=== PATIENT | male | born 1960 | race Caucasian/White ===

== ENCOUNTER 2022-11-02 21:06 | Emergency (ER) | payer OTHER, SELFPAY ==
[2022-11-02 21:08] VITALS: BP 162/96; PULSE 98; RESP 16; TEMP 36.4; O2SAT 99; BMI 38.3
--- NOTE | 2022-11-02 21:43 | EKG12_ITS ---
Test Reason : CP Blood Pressure : / mmHG Vent. Rate : 096 BPM Atrial Rate : 096 BPM P-R Int : 190 ms QRS Dur : 100 ms QT Int : 370 ms P-R-T Axes : 031 006 045 degrees QTc Int : 467 ms Normal sinus rhythm Inferior infarct , age undetermined Abnormal ECG Confirmed by DESMOND GEE, KIM ([id number]), newspaper managing editor BRIDGETT CARBONE ([id number]) on 11/03/2022 10:46:27 AM Referred By: PRABHU Confirmed By:KIM LOGAN MD
--- NOTE | 2022-11-02 21:50 | RAD_ITS ---
STUDY: X-RAY CHEST REASON FOR EXAM: Male, 62 years old. chest pain TECHNIQUE: Single AP portable view of the chest. COMPARISON: None. FINDINGS: The lungs are clear and expanded. Elevated right hemidiaphragm. There is no demonstrated pleural abnormality. Normal size heart. Normal mediastinum and santos. Normal visualized pulmonary arteries. Normal visualized aortic arch and descending thoracic aorta. Normal visualized thoracic spine. Normal visualized ribs, clavicles, and shoulders. There is no demonstrated abnormality of the visualized soft tissue structures of the upper abdomen. RAD/Chest 1 View (Portable) IMPRESSION: Normal x-ray examination of the chest. Electronically Signed: Lei Huang MD at 22:16 EDT ,
[2022-11-02 22:01] LABS: Absolute Lymphocyte Count 2.45 X10^3/uL (0.83-4.51); Absolute Neutrophil Count 6.7 X10^3/uL (2.0-7.7); Basophil# 0.11 X10^3/uL; Eosinophils% 2.6 % (0-5); Hematocrit 43.2 % (40-54); Hemoglobin 14.7 g/dL (13.0-16.5); Lymphocyte # 2.45 X10^3/ul (0.83-4.51); Lymphocyte % 21.5 % (19-41); Mean Corpuscular Hgb 32.9 pg (27.0-32.0); Mean Corpuscular Volume 96.6 fL (80-94); Mean Platelet Vol. 9.4 fl (6.2-12.0); Monocyte# 1.82 X10^3/uL; NRBC Flagged by Analyzer 0 % (0-5); Neutrophil # 6.67 X10^3/uL (2.7-7.7); Neutrophil % 58.6 % (47-70); POSITIVE DIFFERENTIAL YES; Platelet Count 413 K/mm3 (150-450); RBC Distribution Width CV 13.9 % (11.6-14.6); RBC Distribution Width SD 49.6 fl (35.1-43.9); Red Blood Count 4.47 M/mm3 (4.6-6.2); White Blood Count 11.4 K/mm3 (4.4-11.0)
[2022-11-02 22:05] LABS: Differential Indicated SCAN CRITERIA MET
[2022-11-02 22:09] LABS: Prothrombin Time (Protime)PT. 12.8 SECONDS (11.7-14.9)
[2022-11-02 22:15] LABS: Anion Gap 6 (5-15); BUN 13 mg/dL (7-18); BUN/Creat Ratio 10.7 RATIO (10-20); Calcium,Total 9.2 mg/dL (8.5-10.1); Chloride 105 mmol/L (98-107); Creatinine, Serum 1.21 mg/dL (0.70-1.30); EST Glomerular Filtration Rate 64 mL/min (>60); Est Glom Filt Rate - Afr Amer 78 mL/min (>60); Estimated Creatinine Clearance 57.66 ml/min; Glucose 90 mg/dL (74-106); Potassium 2.9 mmol/L (3.5-5.1); Sodium Level 138 mmol/L (136-145); Troponin-I HS (w/2H Reflex) 14 pg/mL (3.0-78.0)
[2022-11-02 22:23] LABS: Differential Comment SCANNED
[2022-11-02] MEDS: Aspirin 325 MG Tablet PO (22:54)
[2022-11-02] MEDS: Ondansetron 4 MG/2 ML Vial IV (22:55)
[2022-11-02] MEDS: Morphine 4 MG/ML Syringe IV (22:56)
[2022-11-02 23:01] VITALS: BP 146/85; PULSE 91; RESP 12; O2SAT 97
[2022-11-02 23:04] LABS: D-Dimer Quantitative (DVT/PE) 0.93 FEU/ug/m (0.27-0.49)
--- NOTE | 2022-11-02 23:08 | CT_ITS ---
STUDY: CTA CHEST REASON FOR EXAM: Male, 62 years old. chest pain with elevated d-dimer RADIATION DOSAGE (If Supplied By Facility): CTDIvol = ( 22.86 ) mGy, DLP = ( 785.33 ) mGycm TECHNIQUE: The examination was performed with the intravenous administration of IV 100mL Isovue-370. Post-processing of the angiographic images was performed, with multiplanar reformation and 3D reconstruction. Individualized dose optimization techniques were used for this CT. COMPARISON: November 02, 2022 chest radiograph. FINDINGS: Unremarkable thyroid. Normal enhancement of the bilateral pulmonary arteries. There is no demonstrated pulmonary embolism. No main pulmonary arterial enlargement. Mild aortic arch atherosclerosis and proximal left subclavian artery atherosclerosis without dissection or ectasia. No cardiomegaly or pericardial effusion.. Mild coronary atherosclerosis. Subcentimeter mediastinal and bilateral hilar lymph nodes, nonpathologic by size criterion, likely reactive. No endobronchial lesion. No peribronchial thickening. Scattered linear subsegmental atelectasis. No effusion. No pneumothorax. Normal osseous structures. Symmetric gynecomastia. Right greater left edema inferior to the scapula. Small hiatal hernia. The Hepatic steatosis. 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 CT/CTA Chest W/WO Contrast IMPRESSION: No pulmonary embolism or evidence of acute airspace. Mild scattered subsegmental atelectasis within the lungs. Small hiatal hernia. Hepatic steatosis. 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 Electronically Signed: Emile Craft MD at 1:12 EDT ,
[2022-11-02 23:57] LABS: Reflex Troponin-HS? (from REC) Y
[2022-11-03 00:33] LABS: Troponin-I HS 15 pg/mL (3.0-78.0)
[2022-11-03 01:28] VITALS: BP 148/94; PULSE 90; RESP 15; O2SAT 95
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
[2022-11-04 10:06] LABS: Pathologist Review Reviewed
== END 2022-11-03 01:44 | disposition home or self-care (01) ==
PROVIDERS: Emergency Provider Emergency Medicine; PCP Family Medicine; Visit Provider Emergency Medicine
DX: R07.9 Chest pain, unspecified (principal); M62.838 Other muscle spasm; E78.00 Pure hypercholesterolemia, unspecified; I10 Essential (primary) hypertension; Z79.899 Other long term (current) drug therapy; M10.9 Gout, unspecified; Z90.81 Acquired absence of spleen; X50.0XXA Overexertion from strenuous movement or load, initial encounter; Y93.89 Activity, other specified
CPT/HCPCS: 71045; 71275; 80048; 84484; 85025; 85379; 85610; 93005; 96374; 96375; 99285; Q9967; A4216; J2405

== ENCOUNTER 2023-03-29 14:51 | Emergency (ER) | payer OTHER, SELFPAY ==
[2023-03-29 14:52] VITALS: BP 193/104; PULSE 105; RESP 18; TEMP 36.7; O2SAT 95; BMI 38.0
--- NOTE | 2023-03-29 15:07 | CT_ITS ---
EXAM: CT Abdomen And Pelvis W/ Contrast Injection HISTORY: epigastric pain TECHNIQUE: Routine protocol CT abdomen pelvis. IV Contrast: IV 100mL Isovue-300 . Oral Contrast: without. Sagittal and coronal images were reconstructed. RADIATION DOSAGE (If Supplied By Facility): CTDIvol = ( 16.33 ) mGy, DLP = ( 1217.97 ) mGycm Individualized dose optimization techniques were used for this CT. COMPARISON: CT chest 11/02/2022. LIMITATIONS: None. FINDINGS: LOWER CHEST: Reticular opacities in the lower lungs likely scarring.. LIVER: Fatty infiltration. Tiny low-attenuation structure too small to characterize. GALLBLADDER/BILE DUCTS: Unremarkable. PANCREAS: Unremarkable. SPLEEN: Not visualized. A few small nodules in the region a few which are calcified, likely splenules. ADRENAL GLANDS: Unremarkable. KIDNEYS / URETERS: Small cyst in the left kidney.. BOWEL / MESENTERY: Diverticula throughout the colon. No bowel obstruction. Scattered soft tissue nodules throughout the mesentery including along the gastrohepatic ligament, gastrosplenic, and largest mass in the left lower abdomen measures 4.9 x 2.2 cm. Another rounded structure at the quinn hepatis adjacent to the pancreatic head measures 3.2 x 1.8 cm. These may represent enlarged lymph nodes, or splenosis given the absent spleen. APPENDIX: Identified and normal. No evidence of acute appendicitis. PERITONEUM: No free air. No free fluid. VESSELS: Abdominal aorta is normal caliber. RETROPERITONEUM: Unremarkable. REPRODUCTIVE ORGANS: Unremarkable. BLADDER: Unremarkable. ABDOMINAL WALL: Unremarkable. BONES: Degenerative changes in lumbar spine, and hips. OTHER: None. CT/Abdomen/Pelvis W IV Cont ONLY IMPRESSION: Colonic diverticulosis without evidence of acute diverticulitis. Multiple soft tissue masses throughout the mesentery. Differential includes splenosis with multiple splenules in the absence of spleen, but adenopathy or metastatic disease is not excluded. If there are no prior studies to assess for stability, nuclear medicine liver spleen scan may be helpful to assess for splenosis. Hepatic steatosis. Electronically Signed: Kimberly Macario MD at 16:32 EST ,
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
[2023-03-29] MEDS: 0.9% Normal Saline (1000mL) 1,000 ML 1000 ML IV (15:25)
[2023-03-29] MEDS: Ondansetron 4 MG/2 ML Vial IV (15:25)
[2023-03-29] MEDS: Morphine 4 MG/ML Syringe IV (15:25)
[2023-03-29 15:45] LABS: Absolute Lymphocyte Count 2.16 X10^3/uL (0.83-4.51); Absolute Neutrophil Count 10.8 X10^3/uL (2.0-7.7); Basophil% 0.7 % (0-1); Eosinophil# 0.07 X10^3/uL; Eosinophils% 0.5 % (0-5); Hematocrit 47.5 % (40-54); Hemoglobin 16.2 g/dL (13.0-16.5); Lymphocyte # 2.16 X10^3/ul (0.83-4.51); Lymphocyte % 14.5 % (19-41); Mean Corp Hgb Conc 34.1 g/dL (32-36); Mean Corpuscular Hgb 32.9 pg (27.0-32.0); Mean Corpuscular Volume 96.5 fL (80-94); Mean Platelet Vol. 9.2 fl (6.2-12.0); Monocyte# 1.71 X10^3/uL; Monocyte% 11.4 % (0-10); NRBC Flagged by Analyzer 0 % (0-5); Neutrophil # 10.83 X10^3/uL (2.7-7.7); Neutrophil % 72.4 % (47-70); POSITIVE DIFFERENTIAL YES; Platelet Count 388 K/mm3 (150-450); RBC Distribution Width CV 14.2 % (11.6-14.6); RBC Distribution Width SD 50.5 fl (35.1-43.9); Red Blood Count 4.92 M/mm3 (4.6-6.2); White Blood Count 14.9 K/mm3 (4.4-11.0)
[2023-03-29 15:46] LABS: Differential Indicated SCAN CRITERIA MET
[2023-03-29 16:01] LABS: ALB/GLOB Ratio 0.7 RATIO (0.9-2.4); AST(SGOT) 34 U/L (15-37); Alanine Aminotransfer ALT/SGPT 36 U/L (16-61); Albumin, Serum 3.6 g/dL (3.2-5.0); Alkaline Phosphatase 120 U/L (45-117); Anion Gap 10 (5-15); BUN 16 mg/dL (7-18); BUN/Creat Ratio 10.7 RATIO (10-20); Calcium,Total 10.7 mg/dL (8.5-10.1); Chloride 100 mmol/L (98-107); EST Glomerular Filtration Rate 50 mL/min (>60); Est Glom Filt Rate - Afr Amer 60 mL/min (>60); Estimated Creatinine Clearance 46.51 ml/min; Globulin 4.9 g/dL (2.2-4.2); Glucose 100 mg/dL (74-106); Lipase 19 U/L (13-75); Potassium 3.2 mmol/L (3.5-5.1); Protein, Total 8.5 g/dL (6.4-8.2); Sodium Level 136 mmol/L (136-145)
[2023-03-31 11:16] LABS: Pathologist Review Reviewed
== END 2023-03-29 17:18 | disposition home or self-care (01) ==
PROVIDERS: Physician Assistant; Emergency Provider Emergency Medicine; PCP Family Medicine; Referring Provider Emergency Medicine; Visit Provider Emergency Medicine
DX: R10.13 Epigastric pain (principal); I10 Essential (primary) hypertension; E78.00 Pure hypercholesterolemia, unspecified; Z79.899 Other long term (current) drug therapy; M10.9 Gout, unspecified; Z90.81 Acquired absence of spleen
CPT/HCPCS: 74177; 80053; 83690; 85025; 96361; 96374; 96375; 99282; J7030; Q9967; A4216; J2405

== ENCOUNTER 2024-02-13 10:00 | Outpatient (CLI) | payer MEDICARE, SELFPAY ==
--- NOTE | 2024-02-16 10:26 | EKG12_ITS ---
Test Reason : PRE OP Blood Pressure : / mmHG Vent. Rate : 098 BPM Atrial Rate : 098 BPM P-R Int : 170 ms QRS Dur : 094 ms QT Int : 374 ms P-R-T Axes : 021 -12 090 degrees QTc Int : 477 ms Normal sinus rhythm Nonspecific ST and T wave abnormality Prolonged QT Abnormal ECG Confirmed by DESMOND GEE, KIM ([id number]), purchase request editor BRIDGETT CARBONE ([id number]) on 02/16/2024 2:10:57 PM Referred By: Darnell Abbasi Confirmed By:KIM LOGAN MD
[2024-02-22 13:32] LABS: Absolute Lymphocyte Count 2.18 X10^3/uL (0.83-4.51); Absolute Neutrophil Count 8.6 X10^3/uL (2.0-7.7); Basophil# 0.09 X10^3/uL; Basophil% 0.7 % (0-1); Eosinophils% 2.3 % (0-5); Hematocrit 41.2 % (40-54); Lymphocyte # 2.18 X10^3/ul (0.83-4.51); Lymphocyte % 17.1 % (19-41); Mean Corpuscular Hgb 34.1 pg (27.0-32.0); Mean Corpuscular Volume 100.5 fL (80-94); Mean Platelet Vol. 9.3 fl (6.2-12.0); Monocyte# 1.53 X10^3/uL; NRBC Flagged by Analyzer 0 % (0-5); Neutrophil # 8.62 X10^3/uL (2.7-7.7); Neutrophil % 67.5 % (47-70); POSITIVE DIFFERENTIAL YES; Platelet Count 471 K/mm3 (150-450); RBC Distribution Width CV 14.6 % (11.6-14.6); RBC Distribution Width SD 53.9 fl (35.1-43.9); White Blood Count 12.8 K/mm3 (4.4-11.0)
[2024-02-22 13:37] LABS: Differential Indicated SCAN CRITERIA MET
[2024-02-22 13:43] LABS: International Normalized Ratio 0.9; Prothrombin Time (Protime)PT. 11.8 SECONDS (11.7-14.9)
[2024-02-22 13:44] LABS: Partial Thromboplast Time 23.8 Seconds (24.1-36.2)
[2024-02-22 14:08] LABS: AST(SGOT) 26 U/L (15-37); Alanine Aminotransfer ALT/SGPT 28 U/L (16-61); Albumin, Serum 3.3 g/dL (3.2-5.0); Alkaline Phosphatase 116 U/L (45-117); Bilirubin, Direct 0.18 mg/dL (0.00-0.30); Globulin 4.8 g/dL (2.2-4.2); Protein, Total 8.1 g/dL (6.4-8.2)
[2024-02-22 14:27] LABS: Anion Gap 8 (5-15); BUN 22 mg/dL (7-18); BUN/Creat Ratio 11.8 RATIO (10-20); Calcium,Total 9.4 mg/dL (8.5-10.1); Chloride 100 mmol/L (98-107); Creatinine, Serum 1.86 mg/dL (0.70-1.30); EST Glomerular Filtration Rate 39 mL/min (>60); Est Glom Filt Rate - Afr Amer 47 mL/min (>60); Glucose 108 mg/dL (74-106); Magnesium 2.4 mg/dL (1.6-2.6); Potassium 2.9 mmol/L (3.5-5.1); Sodium Level 138 mmol/L (136-145)
[2024-02-22 14:30] LABS: Differential Comment SCANNED
[2024-02-23 14:53] LABS: Pathologist Review Reviewed
== END 2024-02-13 19:00 | disposition home or self-care (01) ==
LOC: SDC 06-27 11:24
PROVIDERS: Anesthesiology; PCP Nurse Practitioner Family; Referring Provider Specialist; Visit Provider Specialist
DX: Z01.818 Encounter for other preprocedural examination (principal); M16.11 Unilateral primary osteoarthritis, right hip; Z53.9 Procedure and treatment not carried out, unspecified reason
CPT/HCPCS: 36415; 80048; 80076; 83735; 84443; 85025; 85610; 85730; 87081; 93005

== ENCOUNTER 2024-03-02 09:27 | Emergency (ER) | payer MEDICARE, SELFPAY ==
[2024-03-02 09:28] VITALS: BP 177/102; BP 196/106; PULSE 110; RESP 20; TEMP 37.3; O2SAT 94; BMI 40.2
[2024-03-02 10:24] LABS: Mucous, Urine 0 SEEN /hpf (<or=2+)
[2024-03-02 10:25] LABS: Absolute Lymphocyte Count 2.22 X10^3/uL (0.83-4.51); Absolute Neutrophil Count 9.5 X10^3/uL (2.0-7.7); Basophil# 0.08 X10^3/uL; Basophil% 0.6 % (0-1); Eosinophil# 0.31 X10^3/uL; Eosinophils% 2.2 % (0-5); Hematocrit 42.1 % (40-54); Hemoglobin 14.2 g/dL (13.0-16.5); Lymphocyte # 2.22 X10^3/ul (0.83-4.51); Mean Corp Hgb Conc 33.7 g/dL (32-36); Mean Corpuscular Hgb 34.1 pg (27.0-32.0); Mean Platelet Vol. 9.3 fl (6.2-12.0); Monocyte# 1.68 X10^3/uL; Monocyte% 12.1 % (0-10); NRBC Flagged by Analyzer 0 % (0-5); Neutrophil # 9.54 X10^3/uL (2.7-7.7); Neutrophil % 68.6 % (47-70); POSITIVE DIFFERENTIAL YES; Platelet Count 456 K/mm3 (150-450); RBC Distribution Width CV 14.5 % (11.6-14.6); RBC Distribution Width SD 54.3 fl (35.1-43.9); Red Blood Count 4.17 M/mm3 (4.6-6.2); White Blood Count 13.9 K/mm3 (4.4-11.0)
[2024-03-02 10:26] LABS: Differential Indicated SCAN CRITERIA MET
[2024-03-02] MEDS: Morphine 4 MG/ML Syringe IV (10:30)
[2024-03-02] MEDS: Ondansetron 4 MG/2 ML Vial IV (10:30)
[2024-03-02] MEDS: Ketorolac 15 MG/ML Vial IV (10:30)
[2024-03-02 10:33] LABS: Color, Urine Yellow (Yellow); Glucose, Dipstick Normal (Normal); Ketone-Dipstick Negative (Negative); Leukocyte Esterase-Dipstick Negative /ul (Negative); Nitrite-Dipstick Negative (Negative); Occult Blood-Urine 10 /ul (Negative); Protein-Dipstick 100 mg/dl (Negative); Specific Gravity, Urine 1.015 (1.002-1.030); Urine Bilirubin Dipstick Negative (Negative); Urine Clarity Sl. Cloudy (Clear); Urine Urobilinogen 1 mg/dl (Normal)
[2024-03-02 10:40] LABS: Amorphous Sediment 2+; Squamous Epithelial Cells - UA 5-10 SEEN /hpf (0-5)
[2024-03-02 10:41] LABS: Red Blood Cells-Urine 0-5 SEEN /hpf (0-5); Renal Epithelial Cells 0-5 SEEN /hpf (0-5); White Blood Cells 0-5 SEEN /hpf (0-5)
[2024-03-02 10:42] LABS: Bacteria 2+ /hpf (None Seen)
[2024-03-02 10:53] LABS: AST(SGOT) 24 U/L (15-37); Alanine Aminotransfer ALT/SGPT 23 U/L (16-61); Albumin, Serum 3.3 g/dL (3.2-5.0); Alkaline Phosphatase 115 U/L (45-117); Anion Gap 7 (5-15); BUN 10 mg/dL (7-18); BUN/Creat Ratio 7.3 RATIO (10-20); Bilirubin, Direct 0.16 mg/dL (0.00-0.30); Calcium,Total 9.2 mg/dL (8.5-10.1); Chloride 105 mmol/L (98-107); Creatinine, Serum 1.37 mg/dL (0.70-1.30); EST Glomerular Filtration Rate 55 mL/min (>60); Est Glom Filt Rate - Afr Amer 67 mL/min (>60); Estimated Creatinine Clearance 65.62 ml/min; Globulin 4.9 g/dL (2.2-4.2); Glucose 95 mg/dL (74-106); Lipase 25 U/L (13-75); Potassium 3.2 mmol/L (3.5-5.1); Protein, Total 8.2 g/dL (6.4-8.2); Sodium Level 138 mmol/L (136-145); Troponin-I HS 18 pg/mL (3.0-78.0)
[2024-03-02 11:28] VITALS: BP 141/66; PULSE 81; RESP 16; O2SAT 98
[2024-03-02] MEDS: Potassium Chloride Oral Tablet 20 MEQ 40 MEQ PO (12:17)
[2024-03-02 12:20] VITALS: BP 141/66; PULSE 81; RESP 16; TEMP 37.3; O2SAT 98
[2024-03-02 14:44] LABS: Reflex Lactate? Y
[2024-03-05 14:21] LABS: Pathologist Review Reviewed
== END 2024-03-02 12:28 | disposition home or self-care (01) ==
PROVIDERS: Emergency Provider Emergency Medicine; PCP Internal Medicine; Visit Provider Emergency Medicine
DX: R10.9 Unspecified abdominal pain (principal); E87.6 Hypokalemia; I10 Essential (primary) hypertension; E03.9 Hypothyroidism, unspecified; K57.92 Diverticulitis of intestine, part unspecified, without perforation or abscess without bleeding; K21.9 Gastro-esophageal reflux disease without esophagitis; D72.829 Elevated white blood cell count, unspecified; R14.0 Abdominal distension (gaseous); E78.00 Pure hypercholesterolemia, unspecified; Z86.718 Personal history of other venous thrombosis and embolism; Z87.19 Personal history of other diseases of the digestive system; R50.9 Fever, unspecified; R11.0 Nausea
CPT/HCPCS: 74177; 80048; 80076; 81001; 83605; 83690; 84484; 85025; 96374; 96375; 99283; Q9967; A4216; J2405

== ENCOUNTER 2024-03-02 17:58 | Emergency (ER) | payer MEDICARE, SELFPAY ==
[2024-03-02 17:59] VITALS: BP 156/98; PULSE 106; RESP 18; TEMP 37.3; O2SAT 96; BMI 40.0
[2024-03-02] MEDS: Morphine 4 MG/ML Syringe IV (18:35)
[2024-03-02 18:47] LABS: Absolute Lymphocyte Count 1.22 X10^3/uL (0.83-4.51); Absolute Neutrophil Count 9.4 X10^3/uL (2.0-7.7); Basophil# 0.09 X10^3/uL; Basophil% 0.7 % (0-1); Eosinophils% 0.8 % (0-5); Hematocrit 38.1 % (40-54); Hemoglobin 13.3 g/dL (13.0-16.5); Lymphocyte # 1.22 X10^3/ul (0.83-4.51); Lymphocyte % 9.8 % (19-41); Mean Corp Hgb Conc 34.9 g/dL (32-36); Mean Corpuscular Hgb 34.5 pg (27.0-32.0); Mean Corpuscular Volume 98.7 fL (80-94); Monocyte# 1.53 X10^3/uL; Monocyte% 12.3 % (0-10); NRBC Flagged by Analyzer 0 % (0-5); Neutrophil # 9.44 X10^3/uL (2.7-7.7); Neutrophil % 75.8 % (47-70); POSITIVE DIFFERENTIAL YES; Platelet Count 423 K/mm3 (150-450); RBC Distribution Width CV 14.6 % (11.6-14.6); RBC Distribution Width SD 52.8 fl (35.1-43.9); Red Blood Count 3.86 M/mm3 (4.6-6.2); White Blood Count 12.5 K/mm3 (4.4-11.0)
[2024-03-02 18:48] LABS: Differential Indicated SCAN CRITERIA MET
[2024-03-02 19:00] LABS: Anion Gap 8 (5-15); BUN 12 mg/dL (7-18); BUN/Creat Ratio 7.4 RATIO (10-20); Calcium,Total 8.9 mg/dL (8.5-10.1); Chloride 102 mmol/L (98-107); Creatinine, Serum 1.62 mg/dL (0.70-1.30); EST Glomerular Filtration Rate 46 mL/min (>60); Est Glom Filt Rate - Afr Amer 55 mL/min (>60); Estimated Creatinine Clearance 55.34 ml/min; Glucose 96 mg/dL (74-106); Potassium 3.6 mmol/L (3.5-5.1); Sodium Level 134 mmol/L (136-145)
[2024-03-02 19:30] LABS: Differential Comment SCANNED
[2024-03-02 19:58] VITALS: BP 184/94; PULSE 78; RESP 20; TEMP 37.6; O2SAT 92
[2024-03-02] MEDS: Cefdinir 300 MG Capsule PO (20:03)
[2024-03-02] MEDS: metroNIDAZOLE 500 MG Tablet PO (20:03)
[2024-03-02 20:26] VITALS: BP 184/94; PULSE 78; RESP 20; TEMP 37.6; O2SAT 92
[2024-03-02] MEDS: HYDROcodone Bitartrate/Apap 5/325 Tablet PO (20:49)
[2024-03-05 14:22] LABS: Pathologist Review Reviewed
== END 2024-03-02 20:52 | disposition home or self-care (01) ==
PROVIDERS: Emergency Provider Emergency Medicine; PCP Internal Medicine; Visit Provider Emergency Medicine
DX: R10.32 Left lower quadrant pain (principal); E78.00 Pure hypercholesterolemia, unspecified; N28.1 Cyst of kidney, acquired; I10 Essential (primary) hypertension; K21.9 Gastro-esophageal reflux disease without esophagitis; R50.9 Fever, unspecified
CPT/HCPCS: 80048; 85025; 87631; 96374; 99283; A4216

== ENCOUNTER 2024-03-06 09:43 | Emergency (ER) | payer MEDICARE, SELFPAY ==
[2024-03-06 09:43] VITALS: BP 163/90; PULSE 92; RESP 14; TEMP 36.8; O2SAT 95; BMI 39.0
[2024-03-06 10:07] LABS: Absolute Lymphocyte Count 1.56 X10^3/uL (0.83-4.51); Absolute Neutrophil Count 11.4 X10^3/uL (2.0-7.7); Basophil# 0.06 X10^3/uL; Basophil% 0.4 % (0-1); Eosinophil# 0.05 X10^3/uL; Eosinophils% 0.3 % (0-5); Hematocrit 38.5 % (40-54); Hemoglobin 13.6 g/dL (13.0-16.5); Lymphocyte # 1.56 X10^3/ul (0.83-4.51); Lymphocyte % 10.4 % (19-41); Mean Corp Hgb Conc 35.3 g/dL (32-36); Mean Corpuscular Hgb 34.3 pg (27.0-32.0); Mean Corpuscular Volume 97.2 fL (80-94); Mean Platelet Vol. 9.4 fl (6.2-12.0); Monocyte# 1.79 X10^3/uL; Monocyte% 11.9 % (0-10); NRBC Flagged by Analyzer 0 % (0-5); Neutrophil # 11.43 X10^3/uL (2.7-7.7); Neutrophil % 76.4 % (47-70); POSITIVE DIFFERENTIAL YES; Platelet Count 350 K/mm3 (150-450); RBC Distribution Width CV 14.5 % (11.6-14.6); Red Blood Count 3.96 M/mm3 (4.6-6.2)
[2024-03-06] MEDS: 0.9% Normal Saline (1000mL) 1,000 ML 1000 ML IV (10:08)
[2024-03-06 10:14] LABS: Differential Indicated SCAN CRITERIA MET
[2024-03-06 10:33] LABS: ALB/GLOB Ratio 0.6 RATIO (0.9-2.4); AST(SGOT) 37 U/L (15-37); Alanine Aminotransfer ALT/SGPT 28 U/L (16-61); Albumin, Serum 2.8 g/dL (3.2-5.0); Alkaline Phosphatase 99 U/L (45-117); Anion Gap 8 (5-15); BUN 15 mg/dL (7-18); BUN/Creat Ratio 11.5 RATIO (10-20); Calcium,Total 9.1 mg/dL (8.5-10.1); Chloride 103 mmol/L (98-107); Creatinine, Serum 1.31 mg/dL (0.70-1.30); EST Glomerular Filtration Rate 58 mL/min (>60); Est Glom Filt Rate - Afr Amer 70 mL/min (>60); Globulin 4.9 g/dL (2.2-4.2); Glucose 102 mg/dL (74-106); Magnesium 2.1 mg/dL (1.6-2.6); Potassium 3.2 mmol/L (3.5-5.1); Protein, Total 7.7 g/dL (6.4-8.2); Sodium Level 133 mmol/L (136-145)
[2024-03-06 10:45] LABS: Platelet Estimate ADEQUATE (ADEQ); Vacuolated Cells 1+
[2024-03-06 10:46] LABS: Anisocytosis 1+; Polychromasia 1+; Target Cells RARE; Tear Drop Cell RARE
[2024-03-06] MEDS: Potassium Chloride Oral Tablet 20 MEQ 40 MEQ PO (10:49)
[2024-03-06 11:43] VITALS: BP 132/76; PULSE 64; RESP 18; O2SAT 98
[2024-03-06 11:44] LABS: Mucous, Urine 0 SEEN /hpf (<or=2+)
[2024-03-06 11:45] LABS: Color, Urine Yellow (Yellow); Glucose, Dipstick Normal (Normal); Ketone-Dipstick 5 mg/dl (Negative); Leukocyte Esterase-Dipstick 100 /ul (Negative); Nitrite-Dipstick Positive (Negative); Occult Blood-Urine 25 /ul (Negative); Protein-Dipstick 100 mg/dl (Negative); Urine Clarity Clear (Clear); Urine Urobilinogen 1 mg/dl (Normal)
[2024-03-06 11:48] LABS: Urine Bilirubin Dipstick 1 mg/dL (Negative)
[2024-03-06 12:07] LABS: Amorphous Sediment 1+; Bacteria 2+ /hpf (None Seen); Hyaline Cast 0-5 SEEN /lpf (0-5); Red Blood Cells-Urine 0-5 SEEN /hpf (0-5); Squamous Epithelial Cells - UA 0-5 SEEN /hpf (0-5); White Blood Cells 0-5 SEEN /hpf (0-5)
[2024-03-06 13:17] VITALS: BP 154/89; PULSE 89; RESP 18
[2024-03-06] MEDS: Nitrofurantoin Macrocrystals 100 MG Capsule PO (13:22)
[2024-03-06 13:39] LABS: Pathologist Review Reviewed
== END 2024-03-06 13:32 | disposition home or self-care (01) ==
PROVIDERS: Emergency Provider Emergency Medicine; PCP Internal Medicine; Visit Provider Emergency Medicine
DX: A02.9 Salmonella infection, unspecified (principal); N39.0 Urinary tract infection, site not specified; R31.9 Hematuria, unspecified; I10 Essential (primary) hypertension; E78.00 Pure hypercholesterolemia, unspecified; K57.92 Diverticulitis of intestine, part unspecified, without perforation or abscess without bleeding; E87.6 Hypokalemia; R19.7 Diarrhea, unspecified; K21.9 Gastro-esophageal reflux disease without esophagitis; Z79.899 Other long term (current) drug therapy; Z86.19 Personal history of other infectious and parasitic diseases; Z87.19 Personal history of other diseases of the digestive system
CPT/HCPCS: 80053; 81001; 83735; 85025; 87086; 87493; 87506; 99283; A4216

== ENCOUNTER 2024-04-16 09:50 | Emergency (ER) | payer MEDICARE, SELFPAY ==
[2024-04-16 09:51] VITALS: BP 179/90; PULSE 105; PULSE 113; RESP 20; TEMP 37; O2SAT 97; BMI 38.7
--- NOTE | 2024-04-16 10:12 | RAD_ITS ---
HISTORY: Cough, fever. TECHNIQUE: XR Chest 2 Views. COMPARISON: 11/03/2019. FINDINGS: CARDIOMEDIASTINAL BORDERS: Cardiac silhouette within normal limits in size. Mediastinal contour unremarkable. LUNGS: Mild right basilar opacity. PLEURA: Mild blunting of the right costophrenic angle. OSSEOUS STRUCTURES: Degenerative change. RAD/Chest PA and Lateral IMPRESSION: Mild right basilar atelectasis, possible pneumonia. Electronically Signed: Estela Vincent MD at 11:17 EST ,
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
[2024-04-16] MEDS: 0.9% Normal Saline (1000mL) 1,000 ML 1000 ML IV (10:23)
[2024-04-16 10:36] LABS: Absolute Lymphocyte Count 2.26 X10^3/uL (0.83-4.51); Absolute Neutrophil Count 7.9 X10^3/uL (2.0-7.7); Basophil# 0.16 X10^3/uL; Basophil% 1.2 % (0-1); Eosinophil# 0.08 X10^3/uL; Eosinophils% 0.6 % (0-5); Hematocrit 41.2 % (40-54); Lymphocyte # 2.26 X10^3/ul (0.83-4.51); Lymphocyte % 16.7 % (19-41); Mean Corpuscular Volume 97.2 fL (80-94); Mean Platelet Vol. 9.8 fl (6.2-12.0); Monocyte# 3.05 X10^3/uL; Monocyte% 22.6 % (0-10); NRBC Flagged by Analyzer 0 % (0-5); Neutrophil # 7.86 X10^3/uL (2.7-7.7); Neutrophil % 58.2 % (47-70); POSITIVE DIFFERENTIAL YES; POSITIVE MORPHOLOGY YES; Platelet Count 488 K/mm3 (150-450); RBC Distribution Width CV 15.4 % (11.6-14.6); RBC Distribution Width SD 54.5 fl (35.1-43.9); Red Blood Count 4.24 M/mm3 (4.6-6.2); White Blood Count 13.5 K/mm3 (4.4-11.0)
[2024-04-16 10:45] LABS: Differential Indicated SCAN CRITERIA MET
[2024-04-16 10:51] LABS: ALB/GLOB Ratio 0.7 RATIO (0.9-2.4); AST(SGOT) 37 U/L (15-37); Alanine Aminotransfer ALT/SGPT 31 U/L (16-61); Albumin, Serum 3.2 g/dL (3.2-5.0); Alkaline Phosphatase 107 U/L (45-117); Anion Gap 5 (5-15); BUN 9 mg/dL (7-18); BUN/Creat Ratio 7.8 RATIO (10-20); Calcium,Total 9.2 mg/dL (8.5-10.1); Chloride 101 mmol/L (98-107); Creatinine, Serum 1.16 mg/dL (0.70-1.30); EST Glomerular Filtration Rate 67 mL/min (>60); Est Glom Filt Rate - Afr Amer 81 mL/min (>60); Estimated Creatinine Clearance 75.84 ml/min; Globulin 4.7 g/dL (2.2-4.2); Glucose 97 mg/dL (74-106); Potassium 3.7 mmol/L (3.5-5.1); Protein, Total 7.9 g/dL (6.4-8.2); Sodium Level 132 mmol/L (136-145)
[2024-04-16 11:06] LABS: Lactic Acid 1.4 mmol/L (0.4-1.9)
[2024-04-16 11:17] LABS: Differential Comment SCANNED
[2024-04-16 11:42] VITALS: BP 138/79; PULSE 84; RESP 19; TEMP 36.8; O2SAT 97
--- NOTE | 2024-04-16 11:54 | ED.RN ---
PT REQUESTED PAIN MEDICINE. DR CACERES STATED HE COULD NOT GIVE HIM PAIN MEDICINE BECAUSE IT WILL INTERACT WITH THE PACLOVID.
[2024-04-17 11:13] LABS: Pathologist Review Reviewed
== END 2024-04-16 11:55 | disposition home or self-care (01) ==
PROVIDERS: Emergency Provider Emergency Medicine; PCP Nurse Practitioner Family; Visit Provider Emergency Medicine
DX: U07.1 COVID-19 (principal); K21.9 Gastro-esophageal reflux disease without esophagitis; E78.00 Pure hypercholesterolemia, unspecified; I10 Essential (primary) hypertension; Z79.899 Other long term (current) drug therapy; K57.90 Diverticulosis of intestine, part unspecified, without perforation or abscess without bleeding
CPT/HCPCS: 71046; 80053; 83605; 85025; 87631; 96360; 96361; 99284